=== PATIENT | male | born 1970 | race Caucasian/White ===

== ENCOUNTER 2023-04-02 01:17 | Emergency (ER) | payer OTHER ==
[2023-04-02 01:40] VITALS: BP 121/85; PULSE 87; RESP 20; TEMP 98.9; BMI 35.4
== END 2023-04-02 02:55 | disposition home or self-care (01) ==
LOC: JER 01:17
DX: J10.1 Influenza due to other identified influenza virus with other respiratory manifestations (principal); R05.9 Cough, unspecified; R50.9 Fever, unspecified; M79.10 Myalgia, unspecified site; R09.81 Nasal congestion; Z20.822 Contact with and (suspected) exposure to COVID-19
CPT/HCPCS: 0241U-QW; 99283-25